=== PATIENT | male | born 1960 | race Caucasian/White ===

== ENCOUNTER 2024-07-22 08:43 | Emergency (ER) | payer MEDICAID, OTHER ==
[2024-07-22] MEDS: Acetaminophen/HYDROcodone 325-5 MG Tab PO ONE (09:29)
[2024-07-22] MEDS: Bacitracin Oint 1 GM U/D Packet TOP ONE (10:19)
== END 2024-07-22 10:32 | disposition home or self-care (01) ==
LOC: JP.ED 08:43
DX: S60.221A Contusion of right hand, initial encounter (principal); I10 Essential (primary) hypertension; Z79.899 Other long term (current) drug therapy; W20.8XXA Other cause of strike by thrown, projected or falling object, initial encounter
CPT/HCPCS: 73130; 99283; A9270